=== PATIENT | female | born 1985 | race Two or more races ===

== ENCOUNTER 2016-05-20 10:01 | Inpatient (IN) | payer OTHER ==
[~2016-05-20] VITALS: Ht 157.5 cm; Wt 60.0 kg
--- NOTE | ~2016-05-20 | CLPRLASSUM ---
"PATIENT: DENNIS HORTA | | [facility] UNIT #: [id number] | [address] AGE/SEX: 30 F : 83 | [address] | [place] [address] ADMIT/REG DATE: 05/20/16 | ROOM: [facility] LOC: ADTC | ADTC | Client Problem List/Assessment Summary Date: 05/27/16 Problems identified by the client: methamphetamine use, loss of her kids Problems identified by significant others: mental health, loss of her kids, drug use Client's Strengths: friendly, wants to change Problem List: Code: T Client needs to become familiar with basics of recovery as she is new to treatment and the Twelve Step Program. Code: T Client continued to use alcohol & drugs despite ongoing negative consequences. Code: T Client is experiencing family discord and distancing as a result of past alcohol & drug usage. Code: T Client needs to identify relapse warning signs and develop a plan to deal with them as they arise. Code López: T: to be addressed during course of treatment O: problem noted, expected to resolve itself with abstinence--specific tx plan not required R: problem noted, will be referred upon discharge PRIMARY COUNSELOR: Yady Velasco"
--- NOTE | ~2016-05-20 | TXPLANREV ---
"PATIENT: DENNIS HORTA | | [facility] UNIT #: [id number] | [address] AGE/SEX: 30 F : 83 | [address] | [place] [address] ADMIT/REG DATE: 05/20/16 | ROOM: [facility] LOC: ADTC | ADTC | Treatment Plan/Staffing Review Date: 06/10/16 Treatment plan was reviewed and determined appropriate as written: Yes Treatment plan was reviewed and the following changes/addition/deletions are necessary: Client was given the packet Recovery Maintainance to work on. Discharge plans were reviewed and determined appropriate as previously documented: See Below Discharge plans were reviewed and determined to be as follows: Client was screened for [facility] and will be discharged from [facility] and go directly to the [facility]. Other pertinent issues discussed during this staffing review include: Client was placed on contract for having over the counter sleeping pills in her room and lying about it. Staff Present: Danay Martínez Sue H PRIMARY COUNSELOR: Yady Velasco Client Signature Counselor Signature Date Time "
--- NOTE | ~2016-05-20 | RESCARESUM ---
"PATIENT: DENNIS HORTA | | [facility] UNIT #: [id number] | [address] AGE/SEX: 30 F : 83 | [address] | [place] [address] ADMIT/REG DATE: 05/20/16 | ROOM: [facility] LOC: ADTC | ADTC | Summary of Residential Care Primary Counselor: [facility]ady [facility] Date of Admission: 05/20/16 Date of Discharge: 06/17/16 Referral Source: self Primary Care Provider Prior to Admission: She did not have one Admitting Diagnosis: F15.20 Stimulant Use Disorder, severe with history of IV use; F12.20 Cannabis Use Disorder, severe; F17.20 Tobacco Use Disorder; Hepatitis C; Benign brain cyst; Fibromyalgia; and dental caries all per history and physical/Dr. Rell Albrecht. Discharge Diagnosis: F15.20 Stimulant Use Disorder, severe with history of IV use; F12.20 Cannabis Use Disorder, severe; F17.20 Tobacco Use Disorder; Hepatitis C; Benign brain cyst; Fibromyalgia; and dental caries all per history and physical/Dr. Rell Albrecht. Goals Achieved: Client verbalized her understanding of the severity of her powerlessness and unmanagability related to her substance use. She practiced identifying and appropriately expressing her feelings. Client completed Step 1, Stinkin Thinkin, Shame Faced, Márquez Baby, and Recovery Maintanence. Client began to work on her relapse triggers and prevention plan. Continued Obstacles to Sobriety/Relapse Issues: Client has a history of getting into relationships that are not healthy for her or her recovery. It was recommended she not get into a relationship for the next year so she can focus on herself and her needs. Family Issues Addressed: Client attended family education. Her family was unable to come due to the distance they would have to travel and work issues. Y Individual Therapy Y Group Therapy Y Educational Series on Substance Abuse N Parents/Significant Others Attended Family Program N Acute Medical Problems During the Course of Treatment N Transferred to Hospital During the Course of Treatment Y Accepting of Substance Abuse Problem N Non-accepting of Substance Abuse Problem N Required Psychological or Psychiatric Consultation During the Course of Treatment Completed AA Step # 1 During This Level of Care Significant Incidences During Treatment: Client was put on conract due to having over the counter sleep medication in her room that was given to her by another client that had left. Reason For Discharge: Y Completed Residential [place] Goals and Ready For Next Level of Care N Left Tx Against Medical Advice/Treatment Goals Not Complete PATIENT: DENNIS HORTA | | [facility] UNIT #: [id number] | [address] [place] [address] AGE/SEX: 30 F : 83 | [address] | [place] [address] ADMIT/REG DATE: 05/20/16 | ROOM: [facility] LOC: ADTC | ADTC | Summary of Residential Care N Completed Residential Tx Goals But Refusing Continuing Care Recommendations N Discharged Due to Noncompliance/Treatment Goals not Completed N Discharged Earlier Than Planned Due to: Continuing Care Plan/Recommendations: N Intensive Partial Care Y Sponsor N Partial Care Y AA Meetings/NA Meetings N Outpatient N Co-dependency Services N Therapeutic Community Y 1/ [facility] House N [facility]/ [facility] House N Mental Health Therapy N Marriage Counseling N Other Specific Continuing Care Plan: It is recommended that client continue working on her self-will, her self-pity, and learn to take ownership in her addiction and take the consequences she deserves. She is recommneded to go directly to the [facility] and follow all rules and regulations, seek full-time work, get and call her sponsor on a regular basis, attend 3-5 AA/NA meetings per week, and work a strong program of recovery. PRIMARY COUNSELOR: Yady Velasco"
--- NOTE | ~2016-05-20 | INDIVTXPL2 ---
"PATIENT: DENNIS HORTA | | [facility] UNIT #: [id number] | [address] AGE/SEX: 30 F : 83 | [address] | [place] [address] ADMIT/REG DATE: 05/20/16 | ROOM: [facility] LOC: ADTC | ADTC | Individualized Treatment Plan DATE: 05/27/16 Problem Statement/Issue Identified: Client needs to become familiar with the basics of recovery as she is new to treatment and the Twelve Step Program. Goal: Client will learn how to identify negative consequences of her addiction, attend AA/NA meetings and meet women in recovery. Objectives/Activities to achieve goal: 1. Client will complete the How to Get Started packet, which will help her take a look at how her addiction has progressed in her life and share it with her counselor and selected pages in group. Due Date: 06/05/16 Complete: Incomplete: 2. Client is to complete Step 1, learning how she compromised her values and standards and share with her counselor and selected pages in group. Due Date: 06/05/16 Complete: Incomplete: 3. Client is to attend AA/NA meetings, ask and get at least 5 names and numbrs of women in recovery so she can begin to build a support system and possible sponsor and share that list with he counselor. Due Date: Complete: Incomplete: Client Signature Date Counselor Signaure: Date Outcome/Measurement of Progress Towards Goal: Counselor Signature: Date "
--- NOTE | ~2016-05-20 | TXPLANREV ---
"PATIENT: DENNIS HORTA | | [facility] UNIT #: [id number] | [address] AGE/SEX: 30 F : 83 | [address] | [place] [address] ADMIT/REG DATE: 05/20/16 | ROOM: [facility] LOC: ADTC | ADTC | Treatment Plan/Staffing Review Date: 06/03/16 Treatment plan was reviewed and determined appropriate as written: Yes Treatment plan was reviewed and the following changes/addition/deletions are necessary: Client was given Stinkin Thinkin, Sham Face, and Márquez Baby to read Discharge plans were reviewed and determined appropriate as previously documented: See Below Discharge plans were reviewed and determined to be as follows: Client will b e screened for the [facility] Other pertinent issues discussed during this staffing review include: None Staff Present: Salima Stoddard, Alicia Jurado PRIMARY COUNSELOR: Yady Velasco Client Signature Counselor Signature Date Time "
--- NOTE | 2016-05-20 15:13 | NUR ---
ADMISSION NOTE Rights/Responsibilities: Copy given and explained to client. Signed and accepted by client. Client oriented to physical lay out of the ADTC unit, given Big Book and admission packet. A Russ was assigned. Nicole Client is a 30yr old single female. Brought to tx by [facility] staff, where she has been for the past 3 days. Lives in [place], [place]. DOC, meth, last used 05/04/16, 8-ball daily. Allergies: none, Meds: Amoxicillin.. Family participation maybe. Initial paperwork given and guidelines gone over. Was searched no contraband found. Doctor has been notified.
--- NOTE | 2016-05-20 15:22 | NUR ---
Family Contact: Clients sister was called and given the information about family education along with visiting hours and the rules on phone privileges.
--- NOTE | 2016-05-20 15:58 | NUR ---
Recovery 101 1hr/ Clients all filled out Questionaire on consequences of their any of the chemicals they have used to help dispel any minimizing. Some clients discussed relating to most all of the consequences, all discussed early stage symptoms of addiction they would of had in first 1-2 years of use, discussed early/middle/late stages, disease concept and a definition of addiction that includes all stages (focussed on the loss of control and risking further problems). Many asked good questions and shared personal
--- NOTE | 2016-05-20 16:00 | NUR ---
Trauma Note: Client has some trauma from her past that will be addressed in individual therapy sessions.
--- NOTE | 2016-05-20 16:00 | NUR ---
Individual Therapy, 1.0 hours, This session focused on introducing myself and building of a therapeutic relationship. Client was informed of family education and how it works, release forms and why we ask them to sign them, how significant events work, when you are able to use the phone and visitation hours, room checks and that they should wave at the tech if they are awake, and that they have individual therapy twice a week and group every day.
--- NOTE | 2016-05-20 21:33 | NUR ---
med note: client complained of tooth pain - pain level 7 motrin given
--- NOTE | 2016-05-20 22:45 | NUR ---
Tech Note: Client worked on beaded projects for rec and attended N.A.Meeting. SE: Getting into treatment
--- NOTE | 2016-05-20 23:03 | NUR ---
Education Note: One hour lecture on adult children of alcoholics given by counselor.
--- NOTE | 2016-05-21 04:07 | NUR ---
Bed Note: Client was in bed with eyes closed and motionless at all bed checks.
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
--- NOTE | 2016-05-21 14:46 | NUR ---
Tech Note: Client participated in group walk for exercise, watched the first half of Pleasure Unwoven for education and is working on Step 1.
--- NOTE | 2016-05-21 16:00 | NUR ---
Relapse Prevention, 04/22, 1.0 hours, Client attended and actively participated in relapse education which focused on compulsive behaviors and relapse.
--- NOTE | 2016-05-21 16:41 | NUR ---
Education Note: Client participated in Relapse Prevention education.
--- NOTE | 2016-05-21 18:21 | NUR ---
Education: 1 HOUR. Client attended "Codependency" lecture given by staff.
--- NOTE | 2016-05-21 21:54 | NUR ---
tech note: client c/o level 8 headache @ 2255,motrin 400 mg given.
--- NOTE | 2016-05-21 22:27 | NUR ---
TECH NOTE: Client played Catch Phrase for REC, participated in Guided Meditation, and attended AA meeting. SE: AA
--- NOTE | 2016-05-22 04:33 | NUR ---
tech note: client was motionless in no distress @ all bed checks.
--- NOTE | 2016-05-22 11:16 | NUR ---
Tech notes: Client is working on Step 1.
--- NOTE | 2016-05-22 13:02 | NUR ---
Group 1.5hrs 1:9 Student: Sena Murry Clients shared feelings letters and received feedback from peers. Client expressed her attitude towards information shared in group versus information that should be shared with her counselor. Client also expressed her need to feel needed by other group members.
--- NOTE | 2016-05-22 13:19 | NUR ---
Education note: Client attended speaker Earnest for education.
--- NOTE | 2016-05-22 23:05 | NUR ---
tech note: Client played Pictionary for recreation & attended onsite NA meeting. SE: NA meeting.
--- NOTE | 2016-05-22 23:29 | NUR ---
Eduction: 1 Hour. Client attended "Disease Concept" lecture.
--- NOTE | 2016-05-23 05:38 | NUR ---
tech note: Client was motionless in no distress at all bed checks.
--- NOTE | 2016-05-23 10:20 | NUR ---
Tech Note: Client participated in Spiritual Enrichment. Client stated that he is working on Step One.
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
--- NOTE | 2016-05-23 15:18 | NUR ---
Individual Therapy, 1.0, This session focused on review of clients biopsychosocial and discussion of the chain of events that have led her to treatment. Client was very emotional when talking about her needle use and when she talked about losing her kids.
--- NOTE | 2016-05-23 15:34 | NUR ---
Education 1 Hour: Client heard a panel of speakers from the local recovery community, who shared their experience, strength and hope.
--- NOTE | 2016-05-23 23:23 | NUR ---
TECH NOTE: Client redecorated the building for [employer], participated in Guided Meditation and attended on-site AA meeting. SE: group
--- NOTE | 2016-05-24 04:37 | NUR ---
Bed Note: Clt lay motionless in bed with eyes closed showing no distress at all bed checks.
--- NOTE | 2016-05-24 13:00 | NUR ---
PEER REVIEWS, 1 HR: Clt participated in peer review process and was able to give open and honest feedback to those receiving a review.
--- NOTE | 2016-05-24 15:48 | NUR ---
Tech Note: Client watched the second half of Pleasure Unwoven for education and is working on Step 1.
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
--- NOTE | 2016-05-24 20:29 | NUR ---
Tech note: client watched tv and movies SE:applied to [facility]
--- NOTE | 2016-05-25 04:33 | NUR ---
Bed note: client was in bed with eyes closed and no distess at all bed checks
--- NOTE | 2016-05-25 16:26 | NUR ---
Tech Note: Client attended N.A.Panel and is working on Step One.
--- NOTE | 2016-05-25 20:11 | NUR ---
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 Client watched tv & when heard using inappropriate language was redirected by the tech. SE: nap & receiving calls.
--- NOTE | 2016-05-25 22:11 | NUR ---
tech note: client c/o level 7 tooth pain @ 2211,motrin 400 mg given.
--- NOTE | 2016-05-26 04:59 | NUR ---
Bed Note : Client had eyes closed and in no distress at all bed checks.
--- NOTE | 2016-05-26 11:51 | NUR ---
med note: client complained of tooth pain - pain level 7. motrin given
--- NOTE | 2016-05-26 16:21 | NUR ---
Tech Note: Client is working on step 1, went to temple and took a nap
--- NOTE | 2016-05-26 21:58 | NUR ---
tech note: client c/o level 6 tooth pain @ 2158,motrin 400 mg given.
--- NOTE | 2016-05-26 23:34 | NUR ---
TECH NOTE: Client attended AA panel, participated in community clean and watched tv/movies. redirected for language and socks in hallway SE: jainism
--- NOTE | 2016-05-26 23:50 | NUR ---
tech note: client attended AA Panel & watched tv. SE: Anabaptist.
--- NOTE | 2016-05-27 04:14 | NUR ---
BED NOTE: Client was in bed, motionless with eyes closed all three bed checks.
--- NOTE | 2016-05-27 07:27 | HP ---
ADMIT: 05/20/2016 RM/LOC: [id number] MR#: [id number] [address] [place], [place] [address] SARAH HORTA [address] [place], [place] [address] History and Physical SEX: F AGE: 30 : 1985 DATE OF SERVICE: CHIEF COMPLAINT: Chemical dependency. HISTORY OF PRESENT ILLNESS: Sarah is a 30-year-old, single, white female, who has previously been through treatment at [facility], who recently had a class IV felony possession of meth charges and went to [facility] and was transferred to [facility] for treatment and left treatment and went back to [facility] on May 17 and was sentenced to probation with correction house placement and requested residential level treatment at [facility] and was transferred to treatment on May 20. Sarah's drug of choice on admission was methamphetamines. She first started smoking meth at 14 years of age with a friend. She states he overdosed on OxyContin accidentally at 17 years of age. He subsequently and . She states from 14 to 16, she smoked meth basically about an 8-ball a week. From 16 to now, she has been doing IV meth. She states in her 20s, she would smoke daily and use IV about twice a month. She states the last 3-1/2 years she has been shooting daily and use an 8-ball a day. Her last meth use was May 04, 2016 when she used IV. She states she has mainly dated dealers to get her drugs for free. Second drug of choice is cannabis. She first started smoking pot at 14 years of age. She has been smoking daily ever since. She states she has smoked various amounts throughout, but the heaviest use has been last 3-1/2 years. She states for the last 3-1/2 years she smoked about an ounce of pot a week. Her last use was May 04, 2016. She denies a third drug of choice. She states she never really liked alcohol, never drank much. She denies ever using any other illicit drugs including cocaine, mushrooms, heroin, ecstasy, or inhalants. PAST MEDICAL HISTORY: Includes cholecystectomy, tubal ligation, and 3 vaginal deliveries. ILLNESSES: Include known hepatitis C and benign brain cyst. MEDICATIONS: Include Amoxil for dental caries. FAMILY HISTORY: Remarkable for cancer in maternal granduncle with brain cancer. Of note, paternal aunts and uncles are cocaine addicts and alcoholics. SOCIAL HISTORY: Is that of a 30-year-old, single, white female. She has 3 children from prior relations. She states that 2 of her kids were adopted by her mother and the other one her [id number] has custody of. CPS had been involved in the past. She is currently unemployed, smokes a half a pack of cigarettes daily. ADMIT: 05/20/2016 RM/LOC: [id number] [facility] MR#: [id number] [address] [address] SARAH HORTA [address] [place] [address] History and Physical SEX: F AGE: 30 : 1985 REVIEW OF SYSTEMS: Remarkable for recent dental caries. Remainder of review of systems is negative. PHYSICAL EXAMINATION: VITAL SIGNS: She is 5 feet 2 inches with a weight of 60 kg, blood pressure 116/68 with a pulse 71 and temp 96.8. GENERAL APPEARANCE: Is that of a 30-year-old female who is alert, oriented, in no acute distress. HEENT: Pupils are reactive. Extraocular muscle intact. TMs normal. She has some dental caries. NECK: Without nodes or masses. HEART: Regular without murmur. LUNGS: Clear. BREASTS: Deferred. GENITOURINARY: Deferred. RECTAL: Deferred. EXTREMITIES: No clubbing, cyanosis, edema, or splinter hemorrhages. NEUROLOGIC: Grossly normal including light touch, strength, DTRs. ASSESSMENT: 1. Stimulant use disorder, severe with history of IV use. 2. Cannabis use disorder, severe. 3. Tobacco dependency. 4. Hepatitis C. 5. Benign brain cyst. 6. Fibromyalgia. 7. Dental caries. PLAN: We will continue with her Amoxil, proceed with drug and alcohol abuse dependency treatment and counseling and further evaluation and management based on course during hospitalization. Discussed her need for followup with an infectious disease specialist and optimization specialist for her hepatitis C therapy when she has been clean straight and sober for 3 months. We will proceed with further evaluation and management based on course during hospitalization. Please see her hospital record for further details. Rell Albrecht MD/ pina JOB #: [id number] CC: Rell Albrecht, Attending Physician NO FAMILY PHYSICIAN, Family Physician
--- NOTE | 2016-05-27 10:39 | NUR ---
Tech notes: Client is working on Step 1
--- NOTE | 2016-05-27 12:45 | NUR ---
Experiential Group 1.5 hr/ Clients all participated in family sculpturing by role-playing, feedback, and relating. They also shared what they needed to get help with and a gratitude. Client is grateful for everyone and meetings that she isn't alone in recovery and wants help with patience/can't control.
--- NOTE | 2016-05-27 13:31 | NUR ---
Education note: Client watched video "It can't happen to me"
--- NOTE | 2016-05-27 16:00 | NUR ---
RECOVERY 101 1 HR/ Clients learned about Fundamentals of recovery and tools from AA/NA. They participated by sharing what they hear at meetings that are important for their recovery like: working the steps, how to get and use sponsors, reading C.A.L. literature, service work, HP concept, opening up, slogans, using the Serenity Prayer, attending functions, what is closed and open meetings, etc.
--- NOTE | 2016-05-27 19:07 | NUR ---
Education 1HR: Clt attended lecture given by counselor on "Communication".
--- NOTE | 2016-05-27 22:29 | NUR ---
Tech note: Client participated in group by playing catch phrase. Client attended an onsite NA meeting. SE:All day
--- NOTE | 2016-05-28 05:07 | NUR ---
Bed note : Client was motionless with eyes closed at all bed checks.
--- NOTE | 2016-05-28 11:30 | NUR ---
GROUP 1.5 HRS. 1:8 Clients oriented new peer to purpose and rules of group. Group discussion included effects on loved ones and family/kids as well as relapse triggers and prevention. This client shared details about IV drug use and is confronted on being "terminally unique". She is reminded of the importance to look for similarities regardless of drug of choice and how ingested. Client becomes tearful as she shared more consequences of her drug use including being homeless and trading the water heater out of her mom's rental house for drugs.
--- NOTE | 2016-05-28 16:34 | NUR ---
Tech Note: Client watched video The Enabler and is working on Step 1 and the Big Book.
--- NOTE | 2016-05-28 18:47 | NUR ---
Education: 1 Hour. Client attended presentation given by [facility] AIDS/STDS/HIV. HIV testing was available.
--- NOTE | 2016-05-28 20:14 | NUR ---
Relapse Prevention,04/26 1.0, Client attended and participated in relapse prevention education which focused on internal and external triggers.
--- NOTE | 2016-05-28 23:06 | NUR ---
Tech note: Client participated in rec by playing pictionary. Client went to guided meditation and attended an onsite AA meeting. SE:AA meeting
--- NOTE | 2016-05-29 05:33 | NUR ---
tech note: client was motionless in no distress at all bed checks.
--- NOTE | 2016-05-29 10:19 | NUR ---
Tech Notes: Client is working on BB and mtg with jaron.
--- NOTE | 2016-05-29 11:30 | NUR ---
GROUP 1.5 HRS. 1:10 Clients oriented new peer to purpose and rules of group. Peers processed HOW TO GET STARTED IN TREATMENT and STEP 1 ASSIGNMENTS including compromising values and effects on others. This client becomes defensive as she is again reminded to focus on similarities rather than differences as she focuses on IV use.
--- NOTE | 2016-05-29 15:00 | NUR ---
Individual Therapy, 1.0, This session focused on review of psychosocial and development of clients problems/needs list and treatment plan.
--- NOTE | 2016-05-29 23:22 | NUR ---
Tech note:Client participated in rec-worked on beaded projects SE:mtg with counselor
--- NOTE | 2016-05-29 23:40 | NUR ---
Education: 1 hour lecture on step 2 & 3 given by counselor
--- NOTE | 2016-05-30 04:39 | NUR ---
Bed note: client was in bed with eyes closed and no distress at all bed checks.
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
--- NOTE | 2016-05-30 14:21 | NUR ---
Education 1 Hour: Client heard a presentation on, "Marijuana."
--- NOTE | 2016-05-30 15:02 | NUR ---
Tech Note: Client participated in Spiritual Enrichment in the morning and walked in the halls for afternnon exercise. Client stated that she is working on, "Shame-Faced."
--- NOTE | 2016-05-30 16:43 | NUR ---
Education: 1hr Participated in Step 2 work group. Very involved in the group discussion.
--- NOTE | 2016-05-30 23:05 | NUR ---
Tech Note: Client participated in rec and attended A.A.Meeting.
--- NOTE | 2016-05-30 23:23 | NUR ---
Education Note: Client watched the healthy families video which lasted an hour.
--- NOTE | 2016-05-31 04:47 | NUR ---
Bed note: Client was in bed with eyes closed and no distress at all bed checks.
--- NOTE | 2016-05-31 11:30 | NUR ---
AM GRP 1.5 HRS, Ratio 1:11/ Grp was very confrontational this morning. This clt didn't get confronted but was able to confront others in a healthy manner. She stated she didn't want to sound agressive, but heard she was not. She also got very quiet, when things heated up and stated she lived this way and it's uncomfortable.
--- NOTE | 2016-05-31 14:57 | NUR ---
PEER REVIEWS 1 HR: Clt participated in peer review process and was able to give open and honest feedback to those receiving a review.
--- NOTE | 2016-05-31 16:29 | NUR ---
Tech Note: Client watched a video "How to Sabotage Your Treatment" and is working on Tyrone Hicks.
--- NOTE | 2016-05-31 23:50 | NUR ---
TECH NOTE: Client participated in guideline reading, watched tv/movies and used the phone. Attended optional AA meeting SE: group
--- NOTE | 2016-06-01 04:47 | NUR ---
BED NOTE: Client was in bed, motionless with eyes closed all three bed checks.
--- NOTE | 2016-06-01 12:21 | NUR ---
PEER REVIEWS 1 HR: Clt participated in peer review process and was able to give open and honest feedback to those receiving a review.
--- NOTE | 2016-06-01 16:18 | NUR ---
Tech Note: Client went to AA mtg at [address] [place] [address]. Is working on Shame Face. Client had a visitor today.
--- NOTE | 2016-06-01 18:22 | NUR ---
Individual Therapy: 1.0 hours, This session focused on the review of clients Step 1 and filling out release forms for [facility]. Client discussed the chain of events that led her to treatment.
--- NOTE | 2016-06-01 20:05 | NUR ---
TECH NOTE: Client played Catch Phrase for REC, attended off site AA meeting, watched TV/movies and used phone. SE: visitors
--- NOTE | 2016-06-02 04:49 | NUR ---
Bed Note: Clt lay motionless in bed with eyes closed showing no distress at all bed checks.
--- NOTE | 2016-06-02 16:04 | NUR ---
Tech Note: Client participated in Big Book Study. Client stated that she is working on, "Márquez Baby." Client attended mandaeism in the morning and received a visitor in the afternoon.
--- NOTE | 2016-06-02 22:53 | NUR ---
TECH NOTE: Client attended AA panel, participated in community clean and watched tv/movies. attended [employer] PERSON meeting SE: visits
--- NOTE | 2016-06-03 04:25 | NUR ---
Bed Note: Clt lay motionless in bed with eyes closed showing no distress at all bed checks.
--- NOTE | 2016-06-03 10:17 | NUR ---
Tech notes: Client is working on Techoz
--- NOTE | 2016-06-03 11:30 | NUR ---
Morning Group, 04/17 ratio, 1.0 hours, Client attended and actively participated in group therapy. Client shared her hurt over her kids and that she knew that she needed to take treatment seriously otherwise she wasn't going to make it.
--- NOTE | 2016-06-03 12:43 | NUR ---
Education Note: Client attended educational speaker Kit on Crossaddiction.
--- NOTE | 2016-06-03 16:00 | NUR ---
RECOVERY 101 1 HR/ Clients all brought big books, were given highlighters and shown tools they can use in the big Book on: acceptance, 1/2measures, 12 promises, living in the solution-not the problem, resentments, 2 week prayer to forgiveness, etc. Clients took turns reading and some commented and asked questions.
--- NOTE | 2016-06-03 20:35 | NUR ---
Education: 1 hour lecture on feelings given by counselor
--- NOTE | 2016-06-03 23:45 | NUR ---
Tech Note: Client played a game for rec, and attended N.A.Meeting. SE: All Day
--- NOTE | 2016-06-04 04:02 | NUR ---
bed note: client was in bed with eyes closed and no distress at all bed checks.
--- NOTE | 2016-06-04 12:44 | NUR ---
A.M. 1.5 hr res group/ratio 1:9/ Group heard a getting started assignment, topics focused on anger and anger managment, assertivnes verses aggressive, making amends, forgiving self, and appropriate feedback. A new group member was introduced to group rules and introductions. This client related to feeling angry towards herself.
--- NOTE | 2016-06-04 15:15 | NUR ---
Education Note: Client heard a presentation on, "Grief."
--- NOTE | 2016-06-04 15:27 | NUR ---
Tech Note: Client particiapted in light stretching for morning exercise and walked in the halls in the afternoon. Client stated that she is working on, "Shame-Faced."
--- NOTE | 2016-06-04 18:58 | NUR ---
Individual Therapy, 1.0 hours, This session focused on the client reviewing her readings of Stinking Thinking and Márquez Baby. Client also talked in great length about things she beleived she could not let go of and the shame she felt about her kids.
--- NOTE | 2016-06-05 00:07 | NUR ---
Education: 1 hour lecture given by Counselor on Step 1
--- NOTE | 2016-06-05 00:21 | NUR ---
Tech note: client worked on projects for the alumni ravi for rec and attended AA meeting SE: 30 days clean
--- NOTE | 2016-06-05 04:17 | NUR ---
Bed Note: Clt lay motionless in bed with eyes closed showing no distress at all bed checks.
--- NOTE | 2016-06-05 06:59 | NUR ---
Tech note: Client was not feeling well this morning, no temp, so had her get up.
--- NOTE | 2016-06-05 10:30 | NUR ---
Tech Notes: Client is working on BB
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
--- NOTE | 2016-06-05 13:27 | NUR ---
Education note: Client attended education by [facility]
--- NOTE | 2016-06-05 22:16 | NUR ---
tech note: client c/o cold symptoms @ 0993,mucinex was given.
--- NOTE | 2016-06-05 23:05 | NUR ---
tech note: Client played a game for recreation & attended onsite NA meeting. SE: Group.
--- NOTE | 2016-06-06 02:18 | NUR ---
Education: 1 Hour. Client attended "Unresolved Anger" video & discussion presented by staff.
--- NOTE | 2016-06-06 04:59 | NUR ---
BED NOTE: Client was in bed motionless with eyes closed all three bed checks.
--- NOTE | 2016-06-06 09:15 | NUR ---
Tech Note: Client stated wanting to remain in her room d/t having coughed all night. Client was encouraged to stay in programming. Client did get up and get dressed. Prior to breakfast client c/o diarrhea, but tech was unable to verify. Temperature was 97.9 F, anti-diarrheal prn medication administered. Client went to her room pending a decision from central office supervisor. Client returned to programming after consulting with central office supervisor.
--- NOTE | 2016-06-06 11:21 | NUR ---
Tech Note: Client participated in Spiritual Enrichment. Client stated that she is reading the Big Book.
--- NOTE | 2016-06-06 11:33 | NUR ---
Group 1.5hours 1:11 Clients shared assignments from their Getting Started packet and feelings letters. Client shared the things she related to in her Márquez Baby booklet. Client shared how she has been reaching out to talk to her peers about her own problems and not trying to take care of everyone else. Client received feedback from her peers. Student: Sena Murry
--- NOTE | 2016-06-06 13:08 | NUR ---
Education 1 Hour: Client heard a presentation from a member of the recovery community, who shared his experience, strength and hope.
--- NOTE | 2016-06-06 15:56 | NUR ---
Medication Note: Client took prn pepto bismol at 0735 and ibuprophen at 1555 for H/A rated at 8.
--- NOTE | 2016-06-06 20:21 | NUR ---
Education 1HR: Clt watched video by Nisa Caraballo on Step 5.
--- NOTE | 2016-06-06 22:34 | NUR ---
TECH NOTE: Client played Catch Phrase for REC, participated in Guided Meditation and attended onsite AA meeting. SE: acceptance to [facility]
--- NOTE | 2016-06-07 04:27 | NUR ---
Bed Note: Clt lay motionless in bed with eyes closed showing no distress at all bed checks.
--- NOTE | 2016-06-07 13:00 | NUR ---
PEER REVIEWS 1.25 HRS: Clt participated in peer reviews and took a risk to give open and honest feedback to those receiving a review.
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
--- NOTE | 2016-06-07 15:46 | NUR ---
Tech Note: Client watched a video "It Can't Happen To Me" and is working on Feelings Letters.
--- NOTE | 2016-06-07 22:38 | NUR ---
Tech note : Client watched tv, played games and talked on the phone. Client walked to an offsite AA meeting. SE; All day
--- NOTE | 2016-06-08 05:00 | NUR ---
Bed note: Client was in bed with eyes closed and no distress at all bed checks.
--- NOTE | 2016-06-08 05:54 | NUR ---
Tech note: Client watched tv and played card games. Client walked to an off site AA meeting. SE: All day
--- NOTE | 2016-06-08 15:14 | NUR ---
Tech Note: Client attended N.A.Panel and is working on FL's
--- NOTE | 2016-06-08 20:43 | NUR ---
tech note: client played game for recreation & attended offsite AA meeting.Client watched tv. SE: All day.
--- NOTE | 2016-06-09 15:54 | NUR ---
Tech Note: Client is working on FL's. Client attended temple and took a nap.
--- NOTE | 2016-06-09 22:19 | NUR ---
Tech note: Participated in community clean, attended AA panel with Nahid Marino and went to an onsite HOSPITALITY COORDINATOR meeting. SE; Meeting
--- NOTE | 2016-06-10 04:59 | NUR ---
Bed note: Client was in bed with eyes closed and no distress at all bed checks.
--- NOTE | 2016-06-10 13:27 | NUR ---
Education note: Client attended education speaker Mirian on Tobacco.
--- NOTE | 2016-06-10 13:48 | NUR ---
Experiential Group 1.5hr/ Clients all participated in Family Sculpturing by role-playing, relating and giving feedback. This client volunteered to do her sculpture of her family when she was 12, right before she started using. Client did good job and was tearful about how her sister now is her main support for her recovery. Client was the mom to her siblings, she said never saw mom who worked or entertained men upstairs. Client has resentments with mom but is working on acceptance she is who she is and little to no contact with brothers. She left at 11:29 to do her interview with the [facility].
--- NOTE | 2016-06-10 14:18 | NUR ---
Tech Note: client is working on Fl's and screening for the [facility].
--- NOTE | 2016-06-10 16:00 | NUR ---
RECOVERY 101 1 HR/ Clients all shared what they have struggled with in treatment and what helps them. This client shared she would only smile in past if had needle with dope but now smiles because she likes recovery, is happier. She said she couldn't talk about her child without crying, but can now.
--- NOTE | 2016-06-10 18:03 | NUR ---
Education: 1 Hour. Client attended "Forgiveness" lecture presented by staff.
--- NOTE | 2016-06-10 23:13 | NUR ---
tech note: client played a game for recreation & attended onsite NA meeting. SE: smoking education.
--- NOTE | 2016-06-11 04:34 | NUR ---
tech note: client was motinless in no distress at all bed checks.
--- NOTE | 2016-06-11 12:14 | NUR ---
AM GROUP 11:1/1.5 HR: Client and peers heard several process assignments and issues. Most clients related in some manner and were quick to offer personal experience and feedback. This client was active throughout with clarifying questions, personal sharing and feedback. Client did very well in processing gained insights from reading STINLensAR THINKIN. Client able to recognize corner-cutting, defiance, etc and provide good examples of these thinking errors.
--- NOTE | 2016-06-11 14:32 | NUR ---
Individual Therapy: 1.0 Hours, This session focused on following up with the [facility] and talking to her juvenile probation officer about next steps. Client talked about having to put boundaries up with her mother and having to "Love her from a distance." Client is very excited about getting into the [facility].
--- NOTE | 2016-06-11 15:36 | NUR ---
Tech Note: Client attended programming on Relapse Prevention and is working on Relapse Prevention.
--- NOTE | 2016-06-11 16:27 | NUR ---
Relapse Prevention, 04/29 ration, 1.0 hours, Client attended and participated in relapse prevention education which focused on relapse triggers/issues.
--- NOTE | 2016-06-11 22:21 | NUR ---
TECH NOTE: Client attended Alumni meeting and on-site AA meeting. SE: AA meeting
--- NOTE | 2016-06-11 22:55 | NUR ---
EDUCATION NOTE: 1HR lecture on Shame given by counselor
--- NOTE | 2016-06-12 04:43 | NUR ---
Bed note: Client was in bed with eyes closed and no distress at all bed checks.
--- NOTE | 2016-06-12 10:06 | NUR ---
Tech note: Client is working on Relapse prevention
--- NOTE | 2016-06-12 11:59 | NUR ---
AM GROUP .5 HR: Client and peers helped to ORIENT TWO NEW CLIENTS TO GROUP GUIDELINES, GOALS AND OBJECTIVES. Several clients had assignments to process. This generated a lot of feedback and different individuals sharing from their own experience. Various examples of behaviors and values compromised were addressed with much of the focus on values compromised, how kids become the innocent victims of this disease and how painful but necessary it is to have to look at the reality of those consequences. Client related in various ways to values compromised, mostly as how it has affected her children.
--- NOTE | 2016-06-12 12:45 | NUR ---
Education note: Client attended speaker Mitchel Bhat
--- NOTE | 2016-06-12 16:03 | NUR ---
SPIRITUAL EDUCATION 1 HR. Topic today was on how addiction is a disease of body mind and spirit and how the Steps fit in treating the SPIRIT. We also talked about ways to spirituality, payoffs, and how spirituality is related to both addiction and recovery.
--- NOTE | 2016-06-12 18:16 | NUR ---
Education: 1 Hour. Client attended "Boundaries" lecture presented by staff.
--- NOTE | 2016-06-12 22:13 | NUR ---
Tech note : Client played pictionary for rec and attended an onsite NA meeting. SE: All day
--- NOTE | 2016-06-13 05:19 | NUR ---
tech note: client was motionless in no distress at all bed checks.
--- NOTE | 2016-06-13 11:38 | NUR ---
Group 1.5 Hr Ratio 1:9/Topics today were feelings letters and an anger and hurt assignment. A client also shared how her just say no assignment went Client shared a feelings letter to her youngest kids and did a good job. Client also shared positive feedback with peers when she could relate to what they were sharing.
--- NOTE | 2016-06-13 15:47 | NUR ---
Tech Note: Client went for an outdoor walk in the afternoon. Client stated that she is working on reading in the Big Book.
--- NOTE | 2016-06-13 16:34 | NUR ---
Education 1 Hour: Client heard a presentaion on "Wellness in Recovery."
--- NOTE | 2016-06-13 16:48 | NUR ---
FAMILY EDUCATION 3 HRS Client attended family group and shared how she could not relate to the disease concept as far as alcohol, but was able to relate it to her methamphetamine use. Client also shared for the first time about not wanting to lose her youngest child and how she continued to use despite the consequences of losing custody of all her children. Student: Sena Murry
--- NOTE | 2016-06-13 23:06 | NUR ---
Tech note: Client worked on craft projects for the [employer] for rec and attended AA meeting SE:all day
--- NOTE | 2016-06-14 00:10 | NUR ---
Education note: Clients watched a movie on "my attitude' by Manjit Laguna.
--- NOTE | 2016-06-14 04:53 | NUR ---
Bed note; client was motionlees, with eyes closed at all bed checks.
--- NOTE | 2016-06-14 12:00 | NUR ---
Group 1.5 hr/ 11:1 Clients all got into discussion about how they found spirituality or struggle with HP concepts and a peer shared GS packet. This client did relate and give feedback.
--- NOTE | 2016-06-14 14:01 | NUR ---
PEER REVIEWS 1.25 HRS: Clt participated in peer reviews and took a risk to give open and honest feedback to those receiving a review.
--- NOTE | 2016-06-14 15:30 | NUR ---
Individual Therapy: This session focused on next steps for when client is discharged from treatment. Client has been accepted into [facility] in [place] and is really excited about going there. Client shared her fears about leaving treatment along with the hopes of getting to know her kids now that she is clean and sober.
--- NOTE | 2016-06-14 16:15 | NUR ---
Tech Note: Client went with group for outside walk and watched "Marijuana", by Saad Laguna, for education. Clt is working on the Big Book.
--- NOTE | 2016-06-14 23:46 | NUR ---
Tech Note: Client read guidelines with peers. She attended A.A. SE: All Day
--- NOTE | 2016-06-15 05:32 | NUR ---
Bed Note: Client was motionless with eyes closed at all bed checks.
--- NOTE | 2016-06-15 15:44 | NUR ---
Tech Note: Client working on the Big Book.
--- NOTE | 2016-06-15 20:30 | NUR ---
Tech Note: Client played a game for rec. They also attended the A.A.Meeting at [facility] and [place]. SE: Satya
--- NOTE | 2016-06-16 05:28 | NUR ---
Bed Note: Client was motionless with eyes closed at all bed checks.
--- NOTE | 2016-06-16 15:28 | NUR ---
Tech Note: Client participated in Big Book Study. Client stated that she is working on reading the Big Book. Client attended yazidism.
--- NOTE | 2016-06-16 23:32 | NUR ---
Client attended A.A.Panel and helped with community clean. She also attended the [facility] meeting SE: Last night in treatment
--- NOTE | 2016-06-17 05:03 | NUR ---
Bed Note: Client was motionless with eyes closed at all bed checks.
--- NOTE | 2016-06-17 09:54 | NUR ---
DISCHARGE NOTE Client left tx with her sponsor, all personal belongings were sent with. Discharge instructions gone over and copy givenn.
--- NOTE | 2016-08-04 15:28 | DS ---
ADMIT: 05/20/2016 RM/LOC: [id number] MR#: [id number] [address] [place], [place] [address] SARAH HORTA [address] [place] [address] General Discharge Summary SEX: F AGE: 30 : 1985 ADMISSION DATE: 05/20/2016 DISCHARGE DATE: 06/17/2016 INDICATION FOR HOSPITALIZATION: Sarah is a 30-year-old, single, white female, previously been through treatment at [facility], recently had a class 4 felony possession of meth charge, [facility] and was transferred to [place] for treatment, left treatment and [facility], was sentenced to probation and [facility] placement, requested residential level treatment. Sarah's drug of choice on admission was methamphetamines. Second drug of choice is cannabis. Please see her admission H and P for further details regarding her history of present illness, past medical history, physical exam, and assessment at time of hospitalization. HOSPITAL COURSE: On admission, she was admitted to our residential level treatment [facility]. Hepatitis C testing was ordered. Cymbalta was initiated for her fibromyalgia and pain. Later, she was given a Z-Loyd for an upper respiratory infection. Her primary counselor assigned was Yady Velasco LM, [facility]. During treatment, she underwent individual and group therapy sessions on drug and alcohol abuse dependency. She completed an educational series on substance abuse. Her family was unable to attend the family portion of her treatment program due to distance. During treatment, relapse triggers were identified and relapse prevention plan was outlined. She completed step 1 of Alcoholics Anonymous. She was overall accepting of her substance abuse problems. During treatment, she was placed on contract due to having sleeping medications in her room. Reason for discharge was completion of residential level treatment goals. Aftercare recommendations include direct admission to the [facility] with sponsor assignment and active AA and NA meeting involvement. LABORATORY DATA: Labs during treatment include hepatitis C testing on May 30 that was positive. DISCHARGE MEDICATIONS: Medications at time of discharge include Cymbalta 60 mg daily. ADMIT: 05/20/2016 RM/LOC: [id number] MR#: [id number] [address] [address] SARAH HORTA [address] [place] [id number] General Discharge Summary SEX: F AGE: 30 : 1985 FINAL DISCHARGE DIAGNOSES: Include: 1. Stimulant use disorder, severe, with history of IV use. 2. Cannabis use disorder, severe. 3. Tobacco dependency. 4. Hepatitis C. 5. Benign brain cyst. 6. Fibromyalgia. 7. Dental caries. PROCEDURES: Include drug and alcohol abuse dependency treatment and counseling. Please see her hospital record for the details. Rell Albrecht MD/ pina JOB #: [id number] CC: Rell Albrecht MD, Attending Physician NO FAMILY PHYSICIAN, Family Physician
--- NOTE | 2016-08-30 11:30 | NUR ---
Group 1.5 hr/ 11:1 Clients all heard peers share in discussion about when is it addiction with loss of control or being a "functional addict" as peer asked questions. Also they introduced self to newcomer. This client gave feedback and related to being a functioning addict.
== END 2016-06-17 09:56 | disposition home or self-care (01) | DRG 895 ==
LOC: ADTC 10:01
PROVIDERS: ADMIT Family Medicine
PROC: HZ34ZZZ Individual Counseling for Substance Abuse Treatment, Interpersonal (ICD-10-PCS; principal; 2016-05-20)
PROC: HZ43ZZZ Group Counseling for Substance Abuse Treatment, 12-Step (ICD-10-PCS; principal; 2016-05-20)
PROC: 3E0234Z Introduction of Serum, Toxoid and Vaccine into Muscle, Percutaneous Approach (ICD-10-PCS; 2016-05-31)
DX: F15.20 Other stimulant dependence, uncomplicated (principal); B19.20 Unspecified viral hepatitis C without hepatic coma; F12.20 Cannabis dependence, uncomplicated; F17.210 Nicotine dependence, cigarettes, uncomplicated; G93.0 Cerebral cysts; M79.7 Fibromyalgia; K02.9 Dental caries, unspecified; Z65.3 Problems related to other legal circumstances; Z56.0 Unemployment, unspecified; Z23 Encounter for immunization; Z72.89 Other problems related to lifestyle